=== PATIENT | female | born 1975 | race Caucasian/White ===

== ENCOUNTER 2025-01-24 08:50 | Outpatient (REF) | payer OTHER, SELFPAY ==
--- OUTSIDE RECORDS SUMMARY | 2025-01-24 09:15 | XMS_ITS | Clinical Summary ---
Author Organization [employer] Address [address] [facility] [address] [place] [address] Care Team Providers Care Assistant Operator Name Role Phone Dianelys Cook Primary Care Provider [phone] Allergies Active Allergy Reactions Criticality Noted Date Comments Ibuprofen Chest Pain 12/13/2024 Active Problems Problem Noted Date Diagnosed Date Healthcare maintenance 12/15/2024 Overview (12/15/2024): Pap: due. scheduled 02/24/25 with PCP Mammo: orders sent to [facility] December 2024 Colonoscopy: declined colonoscopy, but in agreement with cologuard. Order placed on 12/13/24. Assessment & Plan (12/15/2024 8:39 PM EDT): -Cardiopulmonary exam WNL -Encouraged healthy lifestyle habits including routine physical exercise and diet rich in fruits and vegetables Encounters Date Type Department Care Team Description 12/16/2024 Telephone [facility] [address] [place] [address] Dariana Post MA Fax 12/13/2024 9:00 AM EST Office Visit [facility] [address] [place] [address] Dianelys Cook FNP Mastodynia of right breast (Primary Dx); Healthcare maintenance; Screening mammogram for breast cancer; Screening for colon cancer; Dietary counseling; Exercise counseling 12/13/2024 Telephone [facility] [address] [place] [address] Dianelys Cook FNP Insurance 12/13/2024 Travel 12/12/2024 Telephone [facility] [address] [place] [address] Dariana Post MA Chart Prep 12/04/2024 Patient Outreach [facility] [address] [place] [address] Dianelys Cook FNP Pre-visit Planning (Pre-visit planning - LVM ) from Last 3 Months Family History Medical History Relation Name Comments No Known Problems Brother No Known Problems Daughter Heart attack Father Diabetes type II Mother Heart attack Mother's Brother Liver disease Mother's Brother Diabetes Mother's Sister No Known Problems Son Relation Name Status Comments Brother Daughter Father Mother Mother's Brother Mother's Sister Son Social History Tobacco Use Types Packs/Day Years Used Date Smoking Tobacco: Never Passive Smoke Exposure: Never Smokeless Tobacco: Never Tobacco Cessation:Counseling Given: Not Answered Depression Answer Date Recorded Patient Health Questionnaire-9 Score 9 12/15/2024 Patient Health Questionnaire-9 Score 9 12/15/2024 Last PHQ-9: Questionnaire Data Not on file 0 12/15/2024 Housing Stability Answer Date Recorded What is your housing situation today? I have albert olivera 12/13/[address] you li ve. Do you have problems with any of the following? None of the above 12/13/2024 Food Insecurity Answer Date Recorded Within the past 12 months, y ou worried that your food would run out before you got money to buy more: Never True 12/13/2024 Within the past 12 months,th e food you bought just didn't last and you didn't have enough money to get more: Never True 04/2025 Transportation Answer Date Recorded In the past 12 months, has l ack of transportation kept you from medical appts, meetings, work or from getting things needed for daily living? No 12/13/2024 Utilities Answer Date Recorded In the past 12 months, has t he electric, gas, oil or water company threatened to shut off services in your home? No 12/13/2024 Depression Answer Date Recorded Patient Health Questionnaire-2 Score 0 12/15/2024 Internet Access Answer Date Recorded Internet Access Q1 Yes 12/13/2024 Internet Access Q2 Not on file 12/13/2024 Comments Unknown Sex and Gender Information Value Date Recorded Sex Assigned at Female 12/13/2024 8:56 AM EST Legal Sex Female 11:03 AM EST Gender Identity Female 12/13/2024 8:56 AM EST Sexual Orientation Choose not to disclose 2024 1:40 PM EST Last Filed Vital Signs Vital Sign Reading Time Taken Comments Blood Pressure 121/76 12/13/2024 9:19 AM EST Pulse 69 12/13/2024 9:19 AM EST Temperature 36.8 ??C (98.3 ??F) 12/13/2024 9:19 AM ES T Respiratory Rate 18 12/13/2024 9:19 AM EST Oxygen Saturation 99% 12/13/2024 9:19 AM EST Inhaled Oxygen Concentration - - Weight 76.2 kg (168 lb) 12/13/2024 9:19 AM EST Height 160.4 cm (5' 3.13 ) 12/13/2024 9:19 AM ES T Body Mass Index 29.64 12/13/2024 9:19 AM EST Plan of Treatment Upcoming Encounters Date Type Department Care Team ([facility] st Contact Info) Description 02/24/2025 11:15 AM EDT Procedure Visit [facility] [address] [place] [address] Dianelys Cook, FORMULA TECHNICIAN [address] [place] [address] Health Maintenance Due Date Last Done Comments CT Colonography 1973 Colonoscopy 1973 FIT 1973 FOBT 1973 HIV Screening 1973 Sigmoidoscopy 1973 Family Planning (PISQ) 1988 Hepatitis C Screening 1991 DTaP/Tdap/Td Vaccines (1 - Tdap) 1992 Hepatitis B Vaccines (1 of 3 - 19+ 3-dose series) 1992 Pap Smear 1994 Cervical Cancer Screening 2003 HPV/Cotest 2003 Pneumococcal Vaccine: 50+ Years (1 of 1 - PCV) 2023 Zoster Vaccines (1 of 2) 2023 COVID-19 Vaccine (1 - 2023-2 5 season) 2024 Influenza Vaccine (#1) 2024 Depression Monitoring 06/17/2025 12/15/2024 , 12/15/2024 Alcohol/Substance Use Screening 12/13/2025 12/13/2024 SDOH Screening 12/13/2025 12/13/2024 Tobacco Screening 12/13/2025 12/13/2024 Depression Screening 12/15/2025 12/15/2024, 12/15/2024 Mammogram 01/15/2026 01/15/2025, 01/15/2025 Colorectal Cancer Screening 01/09/2028 FIT DNA/Cologuard 01/09/2028 01/08/2025 RSV Patients and Patients Aged 60 years or older (1 - 1-dose 75+ series) 2048 HIB Vaccines Aged Out No longer eligi ble based on patient's age to complete this topic HPV Vaccines Aged Out No longer eligi ble based on patient's age to complete this topic Hepatitis A Vaccines Aged Out No long er eligible based on patient's age to complete this topic IPV Vaccines Aged Out No longer eligi ble based on patient's age to complete this topic Meningococcal Vaccine Aged Out No kyrie jd eligible based on patient's age to complete this topic RSV under 20 months Aged Out No longe r eligible based on patient's age to complete this topic Rotavirus Vaccines Aged Out No longer eligible based on patient's age to complete this topic Procedures Procedure Name Priority Date/Time Associated Diagnosis Comments BI MAMMOGRAM DIAGNOSTIC TOMOSYNTHESIS BILATERAL Routine 01/15/2025 Mastodynia of right breast BI US BREAST LIMITED RIGHT Routine 01/15/2025 Mastodynia of right breast LAB COLOGUARD?? COLON CANCER SCREEN Routine 01/08/2025 4:05 PM EDT Screening for colon cancer from Last 3 Months Results * BI US Breast Limited Right (01/15/2025) Anatomical Region Laterality Modality Breast Right Ultrasound us Dianelys RUTLEDGE IM US PROCEDURES Final Result * BI Mammogram Diagnostic Tomosynthesis Bilateral (01/15/2025) Anatomical Region Laterality Modality Breast Bilateral Mammography us Dianelys WEINSTEINP IMG BI PROCEDURES Final Result * Cologuard?? colon cancer screening (01/08/2025 4:05 PM EDT) Cologuard Result Negative Negative 01/17/20 7:35 PM EDT [place] (CLIA #:[id number]) Comment: NEGATIVE TEST RESULT. A negative Cologuard result indicates a low likelihood that a colorectal cancer (CRC) or advanced adenoma (adenomatous polyps with more advanced pre-malignant features) ??is present. The chance that a person with a negative Cologuard test has a colorectal cancer is less than 1 in 1500 (negative predictive value >99.9%) or has an ??advanced adenoma is less than ??5.3% (negative predictive value 94.7%). These data are based on a prospective cross-sectional study of 10,000 individuals at average risk for colorectal cancer who were screened with both Cologuard and colonoscopy. (Sixto Redding al, N Engl J Med 2014;370(14):1286- 1297) The normal value (reference range) for this assay is negative. COLOGUARD RE-SCREENING RECOMMENDATION: Periodic colorectal cancer screening is an important part of preventive healthcare for asymptomatic individuals at average risk for colorectal cancer. ??Following a negative Cologuard result, the [place] [employer] Society and U.S. Multi-Society Task Force screening guidelines recommend a Cologuard re-screening interval of 3 years. References: [place] [employer] Guideline for Colorectal Cancer Screening: https://www.cancer.org/cancer/vuvcs-wacnoh-ulctme/scidrhhms-shvbuxxxx-qiaylfo/ac s-rec ommendations.html.; Rashid DK, Nain CR, Nat LamaK, Colorectal Cancer Screening: Recommendations for Physicians and Patients from the U.S. Multi-Society Task Force on Colorectal Cancer Screening , Am J Gastroenterology 2017; 112:4553-8022. TEST DESCRIPTION: Composite algorithmic analysis of stool DNA-biomarkers with hemoglobin immunoassay. ?? Quantitative values of individual biomarkers are not reportable and are not associated with individual biomarker result reference ranges. Cologuard is intended for colorectal cancer screening of adults of either sex, 45 years or older, who are at average-risk for colorectal cancer (CRC). Cologuard has been approved for use by the U.S. FDA. The performance of Cologuard was established in a cross sectional study of average-risk adults aged 50-84. Cologuard performance in patients ages 45 to 49 years was estimated by sub-group analysis of near-age groups. Colonoscopies performed for a positive result may find as the most clinically significant lesion: colorectal cancer [4.0%], advanced adenoma (including sessile serrated polyps greater than or equal to 1cm diameter) [20%] or non- advanced adenoma [31%]; or no colorectal neoplasia [45%]. These estimates are derived from a prospective cross-sectional screening study of 10,000 individuals at average risk for colorectal cancer who were screened with both Cologuard and colonoscopy. (Sixto Redding al, N Engl J Med 2014;370(14):5163-0212.) Cologuard may produce a false negative or false positive result (no colorectal cancer or precancerous polyp present at colonoscopy follow up). A negative Cologuard test result does not guarantee the absence of CRC or advanced adenoma (pre-cancer). The current Cologuard screening interval is every 3 years. ([place] [employer] Society and U.S. Multi-Society Task Force). Cologuard performance data in a 10,000 patient pivotal study using colonoscopy as the reference method can be accessed at the following location: www.Dailyevent.[employer]/results. Additional description of the Cologuard test process, warnings and precautions can be found at www.quietrevolutionogdooyoord.com. Stool specimen (specimen) 01/08/2025 4:05 PM EDT 01/10/2025 10:45 AM EDT Diaenlys Cook [facility] FORTUNATO ENNIS Final Result [place] (CLIA #:[id number]) [place] [address], from Last 3 Months Insurance [facility]N [facility] Care Teams Assistant Operator Relationship Specialty Start Date End Date Dianelys Cook FNP [address] [place] [id number] PCP - General Family Medicine 12/13/24
--- OUTSIDE RECORDS SUMMARY | 2025-01-24 09:16 | XMS_ITS ---
Author Organization [facility] Address [address] [place] [id number] Care Team Providers Care Cycle Repairer Name Role Phone No, PCP Primary Care Provider Unavailabl e [facility], Nursing Unavailable [phone] REASON FOR VISIT phone: Intake Encounters Encounter Location Date Provider Diagnosis [address] [id number] 07/05/2024 Nursing [facility] Plan Of Treatment No Information Progress Notes * Mildred HOLLEYyDOB:[birth year] (49 yo F)Acc No.[id number]:07/05/2024 Progress Notes Patient:?Paloma HOLLEY Provider:?Provider [facility] :1975???Age:49 Y???Sex:Female D ate:07/05/2024 Address:[address] [place], [place] [id number] Pcp:PCP No Subjective: * Chief Complaints: * ???1. phone: Intake. * Medical History:? Objective: * Vitals:? Assessment: Plan: * Treatment: * Images: Billing Information: * Visit Code:? * Procedure Codes:? * Electronic signature of Nurs [facility] on 01/24/2025 at 09:15 AM EDT Sign off status: Pending * Provider:?Provider [facility] Date:?07/05/2024 Generated for Nicolas chavarria/Christin/Ramya on:?01/24/2025 09:15 AM EDT
--- OUTSIDE RECORDS SUMMARY | 2025-01-24 09:16 | XMS_ITS | Patient Health Record ---
Author Organization [facility] Address [address] [place], [place] [id number] Care Team Providers Care Tire Debeader Name Role Phone No, PCP Primary Care Provider Unavailabl e [facility], Nursing Unavailable [phone] Reason For Referral No Information Plan Of Treatment No Information Insurance Providers Payer Name Payer Address Payer Phone Subscriber Number Group Number Insured Name Patient Relationship to Insured Coverage Start Date Coverage End Date [place] Medicaid Limited [address] [place], [place] [id number] Paloma Holley Self - patient is the insured 4
[2025-01-24 14:28] LABS: MANUAL DIFF FLAG NO
[2025-01-24 14:34] LABS: Eosinophils Absolute Auto 0.1 X10*3/uL (0.0-0.4); Eosinophils Percent Auto 1.1 % (0-4); Hematocrit 39.7 % (37.0-47.0); Hemoglobin 12.9 g/dl (12.0-16.0); Imm Gran Abs Auto 0.01 X10*3/uL (0.00-0.03); Imm Gran Pct Auto 0.2 % (0.0-0.4); Lymphocytes Absolute Auto 2.6 X10*3/uL (1.2-4.9); Lymphocytes Percent Auto 55.6 % (20-40); Mean Corpuscular HGB Conc 32.5 g/dl (31.0-35.0); Mean Corpuscular Hemoglobin 28.9 pg (27.0-33.0); Mean Platelet Volume 9.6 fL (9.4-12.3); Monocytes Absolute Auto 0.5 X10*3/uL (0.1-1.2); Monocytes Percent Auto 9.6 % (2-11); Neutrophils Absolute Auto 1.6 x10*3/uL (2.0-8.3); Neutrophils Percent Auto 33.5 % (45-73); Platelet Count 313 X10*3/uL (160-400); Red Blood Count 4.46 X10*6/uL (4.20-5.50); Red Cell Distribution Width 14.6 % (11.0-16.0); White Blood Count 4.7 X10*3/uL (4.8-10.8)
[2025-01-24 14:49] LABS: Estimated Average Glucose 108 mg/dL; Hemoglobin A1C 122.9795 umol/L; Hemoglobin A1c % 5.4 % (<6.0); Total Hemoglobin (HGBA1C) 3426.6241 umol/L
[2025-01-24 15:34] LABS: Alanine Aminotransferase 18 U/L (0-31); Albumin Level 4.3 g/dL (3.5-5.0); Anion Gap 11 (12-20); Aspartate Amino Transferase 25 U/L (5-31); Bilirubin Total 0.5 mg/dL (0.0-1.0); Blood Urea Nitrogen 9 mg/dL (9-16); Calcium 9.3 mg/dL (8.4-10.2); Carbon Dioxide 23 mmol/L (22-29); Chloride 108 mmol/L (96-108); Cholesterol 213 mg/dL (<200); Estimated Glomerular Filt Rate > 60; Glucose Random 92 mg/dL (60-115); HDL Cholesterol 47 mg/dL (>40); LDL Cholesterol Calculated 141 mg/dL (<100); Potassium 3.7 mmol/L (3.3-5.1); Sodium 138 mmol/L (135-145); TSH reflex Free T4 2.18 uIU/mL (0.32-4.0); Total Protein 7.8 g/dL (6.5-8.0); Triglycerides 125 mg/dL (<150)
[2025-01-24 19:10] LABS: Alkaline Phosphatase 78 U/L (39-117)
[2025-01-25 02:33] LABS: CT PCR NOT DETECTED (Not Detect.); NG PCR NOT DETECTED (Not Detect.)
[2025-01-25 08:27] LABS: HBc Num1 0.11 S/CO (0.00-0.79); HBsAGNum1 0.32 S/CO (0.00-0.99); HIV AB/AG Nonreactive (Nonreactive); HIV Num 1 0.07 S/CO (0.00-0.99); Hepatitis B Core Antibody Nonreactive (Nonreactive); Hepatitis B Surface Antigen Negative (Negative); ~Hepatitis B Surface Antibody NONREACTIVE (Nonreactive)
[2025-01-26 18:48] LABS: RPR Rapid Plasma Reagin NON-REACTIVE (NON-REACTIVE)
[2025-01-27 15:53] LABS: HCV Log PCR <1.18 NOT DETECTED Log IU/mL (NOT DETECTED); HepC Viral Load <15 NOT DETECTED IU/mL (NOT DETECTED)
== END 2025-01-24 08:51 | disposition home or self-care (01) ==
LOC: HO.CHCLDS 08:50
PROVIDERS: Visit Provider Registered Nurse
DX: Z00.00 Encounter for general adult medical examination without abnormal findings (principal)
CPT/HCPCS: 36415; 80053; 80061; 83036; 84443; 85025; 86592; 86704; 86706; 87340; 87389; 87491; 87522; 87591